=== PATIENT | male | born 1945 | race Caucasian/White ===

== ENCOUNTER 2017-02-17 13:56 | Emergency (ER) | payer MEDICARE, OTHER ==
[2017-02-17] MEDS ORDERED: Ciprofloxacin 0.3% Ophth Soln 2.5 ML Bottle ONE (14:00)
--- NOTE | 2017-02-17 20:46 | EDM.PDOC ---
ED HPI GENERAL MEDICAL PROBLEM - General Chief Complaint: General Stated Complaint: EYE INJURY Time Seen by Provider: 02/17/17 14:00 Source of Information: Reports: Patient History Limitations: Reports: No Limitations - History of Present Illness INITIAL COMMENTS - FREE TEXT/NARRATIVE: According to patient he rubbed his left eye yesterday evening as he felt that there was something in the eye. Today morning when he woke up he had some pain in his left eye with redness. also he claims that the eye cannot tolerate bright sun light, when he is out door and starts to tear suddenly. no blurry vision, but feels blurry when the eye tears. no trauma to the eyes. No halo around lights. No eye discharge. no nausea or vomiting. No other complaints. Onset Date: 02/16/17 - Related Data Allergies Allergy/AdvReac Type Severity Reaction Status Date / Time lisinopril Allergy Other Verified 02/17/17 15:17 Home Meds: Home Meds . [Unable to Verify Home Med List] 02/17/17 [History] ED ROS GENERAL - Review of Systems Review Of Systems: See Below Constitutional: Denies: Fever, Chills HEENT: Reports: Eye Pain. Denies: Ear Discharge, Ear Pain, Eye Discharge, Rhinitis, Throat Pain, Throat Swelling, Vision Change Respiratory: Denies: Cough, Sputum Cardiovascular: Denies: Chest Pain, Lightheadedness GI/Abdominal: Denies: Abdominal Pain, Nausea, Vomiting : Denies: Dysuria, Flank Pain Musculoskeletal: Denies: Joint Pain, Joint Swelling Skin: Denies: Pruritis, Rash Neurological: Denies: Dizziness, Headache ED EXAM, GENERAL - Physical Exam Exam: See Below Exam Limited By: No Limitations General Appearance: Alert, WD/WN, No Apparent Distress Eye Exam: Left Eye: Conjunctival Injection, Corneal Abrasion (there is a abrasion in the lower quadrant of the cornea, not in the visual axis of the eye. It is approximately 2mm by 0.5mm in size. there is mild circumcorneal congestion), Bilateral Eye: EOMI, PERRL Ears: Normal External Exam, Normal Canal, Hearing Grossly Normal, Normal TMs Ear Exam: Bilateral Ear: Auricle Normal, Canal Normal, TM normal Nose: Normal Inspection, Normal Mucosa, No Blood Throat/Mouth: Normal Inspection, Normal Lips, Normal Teeth, Normal Gums, Normal Oropharynx, Normal Voice, No Airway Compromise Head: Atraumatic, Normocephalic Neck: Normal Inspection, Supple, Non-Tender, Full Range of Motion Respiratory/Chest: No Respiratory Distress, Lungs Clear, Normal Breath Sounds, No Accessory Muscle Use, Chest Non-Tender Cardiovascular: Normal Peripheral Pulses, Regular Rate, Rhythm, No Edema, No Gallop, No JVD, No Murmur, No Rub Course - Vital Signs Text/Narrative:: On fluroscein testing of the left eye, there is a small corneal abrasion in the lower quadrant of the left eye. Pt probably has scratched his cornea when he rubbed the eye. Pt reassured. I have started him on cipro eye drops 2 drops every 2 hrs to the left eye. Avoid direct sunlight, advised dark glasses when out door. Do not rub the eyes. Followup tomorrow in the emergency room for recheck. If there is blurry vision or halo around light, return sooner. Last Recorded V/S: Last Vital Signs Temp 98.7 F 02/17/17 15:22 Pulse 51 L 02/17/17 15:22 Resp 16 02/17/17 15:22 BP 123/66 02/17/17 15:22 Pulse Ox 98 02/17/17 15:22 - Orders/Labs/Meds Meds: Medications Discontinued Medications Generic Name Dose Route Start Last Admin Trade Name Mateusz PRN Reason Stop Dose Admin Ciprofloxacin 2.5 ml 02/17/17 14:00 Ciloxan 0.3% Ophth Soln .ROUTE 02/17/17 14:01 .STK-MED ONE Departure - Departure Time of Disposition: 14:20 Disposition: Home, Self-Care 01 Condition: Fair Clinical Impression: Injury of conjunctiva and corneal abrasion of left eye w/o FB - Discharge Information Instructions: Corneal Abrasion Referrals: PCP,None [Primary Care Provider] - Forms: ED Department Discharge - Problem List & Annotations (1) Injury of conjunctiva and corneal abrasion of left eye w/o FB SNOMED Code(s): 320415610 Code(s): S05.02XA - INJ CONJUNCTIVA AND CORNEAL ABRASION W/O FB, LEFT EYE, INIT Status: Acute - Problem List Review Problem List Initiated/Reviewed/Updated: Yes - Assessment/Plan Assessment:: Left eye corneal abrasion Plan: On fluroscein testing of the left eye, there is a small corneal abrasion in the lower quadrant of the left eye. Pt probably has scratched his cornea when he rubbed the eye. Pt reassured. I have started him on cipro eye drops 2 drops every 2 hrs to the left eye. Avoid direct sunlight, advised dark glasses when out door. Do not rub the eyes. Followup tomorrow in the emergency room for recheck. If there is blurry vision or halo around light, return sooner.
== END 2017-02-18 15:00 | disposition home or self-care (01) ==
LOC: LB.ED 13:56
DX: S05.02XA Injury of conjunctiva and corneal abrasion without foreign body, left eye, initial encounter (principal); Z88.8 Allergy status to other drugs, medicaments and biological substances; X58.XXXA Exposure to other specified factors, initial encounter
CPT/HCPCS: 99283; A9270

== ENCOUNTER 2017-02-18 14:44 | Emergency (ER) | payer MEDICARE, OTHER ==
--- NOTE | 2017-02-18 16:57 | EDM.PDOC ---
ED HPI GENERAL MEDICAL PROBLEM - General Chief Complaint: General Stated Complaint: RECHECK EYE INJ. Time Seen by Provider: 02/18/17 14:45 Source of Information: Reports: Patient History Limitations: Reports: No Limitations - History of Present Illness INITIAL COMMENTS - FREE TEXT/NARRATIVE: Pt is here for recheck on his right eye corneal abrasion. he claims he feels better. Not much blurry vision today. No tearing for the eye. he is keeping both eyes open to light. no pain in the eyes. No halo around the light. No headache, nausea or vomiting. Has been using cipro eye drops every 2 hrs. no other complaints - Related Data Allergies Allergy/AdvReac Type Severity Reaction Status Date / Time lisinopril Allergy Other Verified 02/17/17 15:17 Home Meds: Home Meds . [Unable to Verify Home Med List] 02/17/17 [History] ED ROS GENERAL - Review of Systems Review Of Systems: See Below Constitutional: Denies: Fever, Chills HEENT: Denies: Ear Discharge, Ear Pain, Eye Discharge, Eye Pain, Sinus Problem, Throat Pain, Throat Swelling Respiratory: Denies: Cough, Sputum Cardiovascular: Denies: Chest Pain, Lightheadedness GI/Abdominal: Denies: Abdominal Pain, Nausea, Vomiting Musculoskeletal: Denies: Joint Pain, Joint Swelling Skin: Denies: Pruritis, Rash ED EXAM, GENERAL - Physical Exam Exam: See Below Exam Limited By: No Limitations General Appearance: Alert, WD/WN, No Apparent Distress Eye Exam: Right Eye: Corneal Abrasion (on fluroscein exam the corneal lesion ahs compeltely healed), Bilateral Eye: EOMI, PERRL Ears: Normal External Exam, Normal Canal, Hearing Grossly Normal, Normal TMs Nose: Normal Inspection, Normal Mucosa, No Blood Throat/Mouth: Normal Inspection, Normal Lips, Normal Teeth, Normal Gums, Normal Oropharynx, Normal Voice, No Airway Compromise Head: Atraumatic, Normocephalic Neck: Normal Inspection, Supple, Non-Tender, Full Range of Motion Respiratory/Chest: No Respiratory Distress, Lungs Clear, Normal Breath Sounds, No Accessory Muscle Use, Chest Non-Tender Cardiovascular: Normal Peripheral Pulses, Regular Rate, Rhythm, No Edema, No Gallop, No JVD, No Murmur, No Rub Course - Vital Signs Text/Narrative:: Pt and his reassured that the corneal abrasion has healed well. I have advised him to continue cipro eye drops 2 drop every 4 hrs. Avoid rubbing the eyes. Use dark glasses when outdoor or around bright light. Advised to followup with his primary care physician or investment specialist, on sunday back home for recheck. Departure - Departure Time of Disposition: 15:15 Disposition: Home, Self-Care 01 Condition: Fair Clinical Impression: Corneal abrasion - Discharge Information - Problem List & Annotations (1) Corneal abrasion SNOMED Code(s): 35277269 Code(s): S05.00XA - INJ CONJUNCTIVA AND CORNEAL ABRASION W/O FB, UNSP EYE, INIT Status: Acute - Problem List Review Problem List Initiated/Reviewed/Updated: Yes - Assessment/Plan Assessment:: Resolved corneal abrasion Plan: Pt and his reassured that the corneal abrasion has healed well. I have advised him to continue cipro eye drops 2 drop every 4 hrs. Avoid rubbing the eyes. Use dark glasses when outdoor or around bright light. Advised to followup with his primary care physician or investment specialist, on sunday back home for recheck.
== END 2017-02-18 15:00 | disposition home or self-care (01) ==
LOC: LB.ED 14:44
DX: S05.01XA Injury of conjunctiva and corneal abrasion without foreign body, right eye, initial encounter (principal); Z88.8 Allergy status to other drugs, medicaments and biological substances; X58.XXXA Exposure to other specified factors, initial encounter
CPT/HCPCS: 99282; 99283